=== PATIENT | female | born 1995 | race Caucasian/White ===

== ENCOUNTER 2023-03-03 14:55 | Emergency (ER) | payer BC, SELFPAY ==
[2023-03-03 15:14] VITALS: BP 127/94; BP 134/88; PULSE 120; PULSE 98; RESP 22; TEMP 37.1; O2SAT 98; BMI 31.3
[2023-03-03 15:33] LABS: MANUAL DIFF FLAG NO
[2023-03-03 15:38] LABS: Basophils Absolute Auto 0.1 X10*3/uL (0.0-0.2); Basophils Percent Auto 0.9 % (0-2); Eosinophils Percent Auto 0.2 % (0-4); Hematocrit 41.5 % (37.0-47.0); Hemoglobin 14.4 g/dl (12.0-16.0); Imm Gran Abs Auto 0.02 X10*3/uL (0.00-0.03); Imm Gran Pct Auto 0.2 % (0.0-0.4); Lymphocytes Absolute Auto 2.3 X10*3/uL (1.2-4.9); Lymphocytes Percent Auto 22.7 % (20-40); Mean Corpuscular HGB Conc 34.7 g/dl (31.0-35.0); Mean Corpuscular Hemoglobin 28.5 pg (27.0-33.0); Mean Platelet Volume 9.8 fL (9.4-12.3); Monocytes Absolute Auto 0.9 X10*3/uL (0.1-1.2); Monocytes Percent Auto 8.5 % (2-11); Neutrophils Absolute Auto 6.7 x10*3/uL (2.0-8.3); Neutrophils Percent Auto 67.5 % (45-73); Platelet Count 389 X10*3/uL (160-400); Red Blood Count 5.06 X10*6/uL (4.20-5.50); Red Cell Distribution Width 11.8 % (11.0-16.0)
[2023-03-03 15:40] LABS: Appearance Urine Cloudy; Color Urine Yellow; Glucose Urine UA Negative (Negative); Leukocyte Esterase Urine Negative (Negative); Nitrite Urine Negative (Negative); PH 5.5 (5.0-9.0); Specific Gravity - Urine >= 1.030 (1.005-1.025); UMIC TRIGGER UACC YES; Urine Blood Trace (Negative); Urine Ketones >=160 mg/dL (Negative); Urine Protein 30 (1+) mg/dL (Neg-Trace)
[2023-03-03 15:50] LABS: Alanine Aminotransferase 33 U/L (0-31); Albumin Level 4.6 g/dL (3.5-5.0); Alkaline Phosphatase 71 U/L (39-117); Anion Gap 15 (12-20); Aspartate Amino Transferase 21 U/L (5-31); Bilirubin Total 0.4 mg/dL (0.0-1.0); Blood Urea Nitrogen 8 mg/dL (9-16); Calcium 9.8 mg/dL (8.4-10.2); Carbon Dioxide 21 mmol/L (22-29); Chloride 107 mmol/L (96-108); Creatinine Clr Calc Pharmacy 126.6; Estimated Glomerular Filt Rate > 60; Ethanol < 10 mg/dL; Glucose Random 79 mg/dL (60-115); Sodium 139 mmol/L (135-145); Total Protein 8.2 g/dL (6.5-8.0)
[2023-03-03 15:57] LABS: COVID-19 Test Negative (Negative); IDNOW Serial# BCCEAD1C
[2023-03-03 16:23] LABS: Bacteria Urine 1+ (None Seen); Hyaline Casts Urine 0-2 /LPF (0-2); WBC Urine 0-5 /HPF (0-5)
--- NOTE | 2023-03-03 16:57 | PC.NURSE ---
patient resting comfortably on bed at this time, respirations even and unlabored, skin pwd, alert and oriented x4. Pt verbalizes that she wants help and is unsure if she feels inpatient or outpatient would be more beneficial. PA speaking with patient at this time, no apparent distress
--- NOTE | 2023-03-03 17:00 | ED.PSYCH ---
HPI - Psych General Chief Complaint: Psychiatric Symptoms Stated Complaint: EMOTIONAL DISTRESS,-SI Time Seen by Provider: 03/03/23 16:37 Source: patient and RN notes reviewed Limitations: no limitations History of Present Illness HPI Narrative: 27-year-old female who has a history of anxiety in the past, depression presents for evaluation of severe anxiety and depression. Patient states that for over the past week her symptoms have been attempted to be managed in the outpatient setting. She has been seeing her therapist, counselor as well as primary care provider. She has trialed several medications, including BuSpar, Ativan without relief. 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 Patient also endorses that she wakes from sleep in a state of panic. Patient handling denies any suicidal homicidal ideation. She denies any auditory visual hallucinations. She denies any tobacco, alcohol or illicit drug abuse. Patient states the depression stems from a miscarriage back in October of 2022. In addition, her partner also recently left her. Related Data Home Medications Medication Instructions Recorded Confirmed buspirone 5 mg tablet 5 mg PO TID 03/03/23 03/03/23 levothyroxine 25 mcg tablet 25 mcg PO DAILY 03/03/23 03/03/23 Previous Rx's Medication Instructions Recorded hydroxyzine HCl 25 mg tablet 25 mg PO TID PRN anxiety #20 tabs 03/03/23 Allergies Allergy/AdvReac Type Severity Reaction Status Date / Time latex Allergy Severe Hives Verified 03/03/23 15:57 benzoyl peroxide Allergy Intermediate Hives Verified 03/03/23 15:57 hydrocodone Allergy Intermediate Hives Verified 03/03/23 15:57 Review of Systems Review of Systems: Yes all other systems are reviewed and are negative Psychiatric: Psychiatric: Reports abnormal sleep pattern, Reports anxiety, Reports depression, Reports difficulty concentrating, Denies auditory hallucinations and Reports hopelessness [facility] Past Medical History Attestation statement: The following information was validated with the patient. [facility] Narrative: Depression, anxiety Source: old records reviewed Social History Social History Alcohol intake: never Smoked in Last 30 Days: No Use of substances other than those prescribed or required for medical reasons: No Advance Directives: No Advance Directives Information Provided: No Patient : No Physical Exam Vital Signs: Vital Signs: Last Vital Signs Temp 98.7 F 03/03/23 15:14 Pulse 120 H 03/03/23 15:14 Resp 22 H 03/03/23 15:14 BP 127/94 H 03/03/23 15:14 Pulse Ox 98 03/03/23 15:14 O2 Del Method Room Air 03/03/23 15:14 BMI result Body Mass Index 31.3 Const: General: cooperative Limitations: no limitations Eyes: General: appearance normal, both eyes and all related structures Resp: Effort & Inspection: normal respiratory effort Auscultation: clear to auscultation bilaterally Cardio: Rate: regular rate Rhythm: regular rhythm Psych: Affect: Sad affect present and Blunted affect present Attitude: cooperative Thought content: Normal thought content present Course Course Course Narrative: 5:15 p.m., March 03, 2023 27-year-old female with increased depression anxiety severely limiting her ADLs. Despite outpatient counseling and medication, her symptoms have progressed. Patient was sent to the emergency department for further evaluation and management. According to outpatient records, the patient was seen by the crisis team on 2 separate occasions. Reevaluation(s) Reevaluation #1: Patient seen and evaluated by the care team, [place]. Patient continues to deny any suicidal homicidal ideation. She is able contract for safety. The care team has arranged for urgent outpatient visit as well as establishing a consistent provider. In the meantime, patient is agreeable to a trial of hydroxyzine for her anxiety. She will be discharged home in the care of her family. Reviewed all discharge instructions. No further questions at this time. Time: 19:44 Medical Decision Making Differential Diagnosis Differential Diagnoses: The differential diagnosis associated with the presentation includes Severe anxiety Depression Bipolar PTSD Psychosis Consult Healthcare Provider Management of the patient was discussed with: Behavioral Health Provider Lab Data [facility] Lab Attestation statement: I reviewed the patient's lab results. 03/03/23 15:23 03/03/23 15:23 Labs: Lab Results 03/03/23 Range/Units 15: WBC 10.0 (4.8-10.8) X10*3/uL RBC 5.06 (4.20-5.50) X10*6/uL Hgb 14.4 (12.0-16.0) g/dl Hct 41.5 (37.0-47.0) % MCV 82.0 (80.0-98.0) fL MCH 28.5 (27.0-33.0) pg MCHC 34.7 (31.0-35.0) g/dl RDW 11.8 (11.0-16.0) % Plt Count 389 (160-400) X10*3/uL MPV 9.8 (9.4-12.3) fL Immature Gran % (Auto) 0.2 (0.0-0.4) % Neut % (Auto) 67.5 (45-73) % Lymph % (Auto) 22.7 (20-40) % [place] % (Auto) 8.5 (2-11) % Eos % (Auto) 0.2 (0-4) % Baso % (Auto) 0.9 (0-2) % Lymph # (Auto) 2.3 (1.2-4.9) X10*3/uL [place] # (Auto) 0.9 (0.1-1.2) X10*3/uL Eos # (Auto) 0.0 (0.0-0.4) X10*3/uL Baso # (Auto) 0.1 (0.0-0.2) X10*3/uL Abs Immat Gran (auto) 0.02 (0.00-0.03) X10*3/uL Absolute Neuts (auto) 6.7 (2.0-8.3) x10*3/uL Absolute Nucleated RBC 0.000 (0.0-0.012) X10*3/uL Nucleated RBC % (auto) 0.0 (0.0-0.2) /100WBC Sodium 139 (135-145) mmol/L Potassium 4.0 (3.3-5.1) mmol/L Chloride 107 (96-108) mmol/L Carbon Dioxide 21 L (22-29) mmol/L Anion Gap 15 (12-20) BUN 8 L (9-16) mg/dL Creatinine 0.72 (0.5-1.4) mg/dL Estim Creat Clear Calc 126.6 Estimated GFR > 60 Random Glucose 79 (60-115) mg/dL Calcium 9.8 (8.4-10.2) mg/dL Total Bilirubin 0.4 (0.0-1.0) mg/dL AST 21 (5-31) U/L ALT 33 H (0-31) U/L Alkaline Phosphatase 71 (39-117) U/L Total Protein 8.2 H (6.5-8.0) g/dL Albumin 4.6 (3.5-5.0) g/dL Urine Color Yellow Urine Appearance Cloudy Urine pH 5.5 (5.0-9.0) Ur Specific [place] >= 1.030 H (1.005-1.025) Urine Protein 30 (1+) H (Neg-Trace) mg/dL Urine Glucose (UA) Negative (Negative) mg/dL Urine Ketones >=160 (Negative) mg/dL Urine Blood Trace H (Negative) Urine Nitrite Negative (Negative) Ur Leukocyte Esterase Negative (Negative) Urine RBC 3-5 H (0-2) /HPF Urine WBC 0-5 (0-5) /HPF Ur Squamous Epith Cells 3-5 (0-2) /HPF Urine Bacteria 1+ (None Seen) Hyaline Casts 0-2 (0-2) /LPF Urine Test NEGATIVE (NEGATIVE) Urine Opiates Screen Not Detected (Not Detect) Urine Fentanyl Screen Not Detected (Not Detect) Ur Barbiturates Screen Not Detected (Not Detect) Ur Phencyclidine Scrn Not Detected (Not Detect) Ur Amphetamines Screen Not Detected (Not Detect) U Benzodiazepines Scrn Not Detected (Not Detect) Urine Cocaine Screen Not Detected (Not Detect) U Marijuana (THC) Screen Not Detected (Not Detect) Ethyl Alcohol < 10 mg/dL COVID-19 (APRYL) Negative (Negative) COVID-19 Clin Com See Note External Record Review External record reviewed: Outside ED record (No outpatient ED records available at this time.) [facility] from [facility] demonstrate that she has had several visits and telephone calls since February 27. This coincides with the patient's reported history. Discharge Plan Discharge Clinical Impression: Acute anxiety Depression Qualifiers: Depression Type: unspecified Qualified Code(s): F32.A - Depression, unspecified Patient Disposition: Home, Self-Care Instructions: Depression (ED), Anxiety (ED) Additional Instructions: Follow-up with your plan according to the crisis team. Hydroxyzine as directed for anxiety. This medication may need to be adjusted once you see your new prescriber. Caution as this medication may cause you to be drowsy. Do not operate heavy machinery, drive while taking this medication. Do not drink alcohol while taking this medication. Follow-up with your primary care provider. Call for follow-up appointment. Watch for any worsening symptoms or any other concerns, return immediately to the emergency department. Prescriptions: New hydroxyzine HCl 25 mg tablet 25 mg PO TID PRN (Reason: anxiety) Qty: 20 0RF No Action buspirone [BuSpar] 5 mg Tablet 5 mg PO TID levothyroxine 25 mcg Tablet 25 mcg PO DAILY Referrals: Ruth Enriquez MD [Primary Care Provider] - (follow up per care team) Interventions: [place]-Suicide Risk Severity Scale Last Done: 03/03/23 15:49
[2023-03-03 17:04] LABS: Amphetamine Screen Urine Not Detected (Not Detect); Barbiturates, Urine Not Detected (Not Detect); Benzodiazepines Screen Urine Not Detected (Not Detect); Cannabinoid Screen Urine Not Detected (Not Detect); Cocaine Screen Urine Not Detected (Not Detect); Fentanyl, urine Not Detected (Not Detect); Opiate Screen Urine Not Detected (Not Detect); Phencyclidine Screen Urine Not Detected (Not Detect)
--- NOTE | 2023-03-03 18:46 | PC.NURSE ---
patient moved from [facility] to [facility] because there were ants in her room
[2023-03-03 19:19] LABS: UPreg QC Valid YES; Urine Pregnancy NEGATIVE (NEGATIVE)
--- NOTE | 2023-03-03 21:09 | MHC.CARE ---
CARE Team made an Urgent OP referral to [facility] for a therapist and a med provider. Pt stated that she would go to their walk-in hours between 10am-12pm in [place] to try and get seen sooner.
== END 2023-03-03 19:55 | disposition home or self-care (01) ==
PROVIDERS: Physician Assistant; Emergency Provider Emergency Medicine Emergency Medical Services; PCP Internal Medicine
DX: F41.9 Anxiety disorder, unspecified (principal); F32.A Depression, unspecified; Z20.822 Contact with and (suspected) exposure to COVID-19; Z79.899 Other long term (current) drug therapy
CPT/HCPCS: 80053; 80307; 81001; 81025; 85025; 87635; 99284; S9485